=== PATIENT | male | born 1945 | race Caucasian/White ===

== ENCOUNTER 2020-05-21 14:28 | Inpatient (IN) | payer MEDICARE ==
[2020-05-21] MEDS ORDERED: MORPHINE SULFATE 4 MG INJ IV ONE ×2 (14:49→17:50)
[2020-05-21] MEDS ORDERED: Sodium Chloride 0.9% 1000 ML 1,000 ML IV STA (14:49)
[2020-05-21] MEDS ORDERED: Zofran 4 MG/2 ML VIAL IV ONE (14:49)
[2020-05-21] MEDS ORDERED: Zofran 4 MG/2 ML VIAL ONE (14:59)
[2020-05-21] MEDS ORDERED: MORPHINE SULFATE 4 MG INJ ONE ×2 (14:59→17:58)
[2020-05-21] MEDS ORDERED: Sodium Chloride 0.9% 1000 ML 0 ML ONE (14:59)
[2020-05-21 15:38] LABS: Absolute Neutrophil Ct (ANC) 10.64 (1.4-6.9); BASOPHIL % 0.2 % (0.0-0.4); Basophil (Absolute #) 0.02 (0-0.4); Eosinophil (Absolute #) 0 (0-0.5); Hemoglobin 14.5 gm/dl (12.5-18.0); Lymphocytes % 10.6 % (24.0-44.0); Mean Cell Volume 87.8 fl (78-100); Mean Corpuscular Hemoglobin 28.9 pg (26-32); Mean Platelet Volume 10.3 fl (7.5-11.0); Monocyte (Absolute #) 1.14 (0.0-1.3); Monocytes % 8.6 % (0.0-12.0); Neutrophil % 80.6 % (36.0-66.0); Platelet Count 276 K/mm3 (150-450); Red Blood Count 5.01 M/mm3 (4.1-5.6); Red Cell Distribution Width 12.7 % (11.5-14.0); White Blood Count 13.2 K/mm3 (4.0-10.5)
[2020-05-21 15:41] LABS: ALBUMIN 4.4 g/dL (3.5-5.0); ALKALINE PHOSPHATASE 61 U/L (38-126); ANION GAP 18.5 MEQ/L (5-15); BLOOD UREA NITROGEN 26 mg/dL (9-20); CHLORIDE 96 mmol/L (98-107); Calcium 9.1 mg/dL (8.4-10.2); Carbon Dioxide 24 mmol/L (22-30); Creatinine 1 1.18 mg/dL (0.66-1.25); Glucose 309 mg/dL (74-106); LIPASE 66 U/L (23-300); Potassium 4.9 mmol/L (3.5-5.1); SGOT/AST 32 U/L (17-59); SGPT/ALT 31 U/L (0-50); SODIUM 134 mmol/L (137-145); Total Protein 7.6 g/dL (6.3-8.2)
[2020-05-21 15:50] LABS: Appearance SLIGHTLY CLOUDY (CLEAR); Bilirubin NEGATIVE (NEGATIVE); Blood NEGATIVE Ery/ul (0-5); Epithelial Cells RARE /HPF (FEW); Glucose >=500 mg/dL (NEGATIVE); Ketones TRACE (NEGATIVE); Leukocyte Esterase NEGATIVE (NEGATIVE); Mucus SLIGHT /HPF (NEGATIVE); Nitrite NEGATIVE (NEGATIVE); Protein,Urine Dip 100 (Negative); RBC 0-2 /HPF (0-2); Specific Gravity 1.028 (1.005-1.025); Urobilinogen 4 mg/dL (0-1); WBC 0-2 /HPF (0-5)
--- NOTE | 2020-05-21 16:25 | ERPHSYRPT ---
- History of Present Illness Time Seen by Provider: 05/21/20 14:41 Historian: patient Exam Limitations: no limitations Patient Subjective Stated Complaint: pt reports abdominal pain beginning 05/19/20 while at his daughters, reports around 9pm that evening he began having RUQ abdominal pain that has gradually increased since then. pt reports now is adomen is swollen. Triage Nursing Assessment: pt is aox3, pupils perrl, afebrile, resps easy and non labored, cap refill < 3 seconds, radial pulses strong and equal, abd is firm, tender to the RUQ, abdomen is asymmertical, distended RUQ, bowel sounds WNL, skin is intact, no rash noted, warm dry. Physician History: 75 years old male with history of hypertension, hyperlipidemia, diabetes mellitus, open cholecystectomy in the past presented in the ER with chief complaint of right-sided abdominal pain for the last 2 days, sudden onset, moderate intensity without any significant aggravating or relieving factors, associated with mild nausea but no vomiting. Reports feeling swelling/lump on the right side. Patient reports no bowel movement or passing flatus for 2 days. Denies any fever chills or cough. Timing/Duration: day(s) (2), sudden, worse Activities at Onset: rest Quality: sharpness Abdominal Pain Onset Location: RUQ, flank Pain Radiation: no radiation Severity of Pain-Max: moderate Severity of Pain-Current: moderate Modifying Factors: Improves With: nothing Associated Symptoms: nausea Previous symptoms: no prior history Allergies/Adverse Reactions: No Known Drug Allergies Allergy (Verified 05/21/20 14:49) Home Medications: Lisinopril 40 mg PO DAILY 02/14/12 [History] Metformin HCl 1000 mg [Glucophage 1000 MG] 1,000 mg PO BID 02/14/12 [History] Verapamil HCl 80 mg [Calan 80 mg] 180 mg PO DAILY 02/14/12 [History] Simvastatin 40 mg [Zocor 40 mg] 40 mg PO DAILY 05/07/14 [History] Acetaminophen 500 mg [Tylenol Extra Strength 500 mg] 1,000 mg PO HS 05/08/14 [History] Multivitamin [Multivitamins] 1 each PO DAILY 05/08/14 [History] [place]-3 Fatty Acids/Fish Oil [Fish Oil 1,000 mg Capsule] 2,000 mg PO DAILY 05/08/14 [History] Glipizide [Glipizide ER] 10 mg PO DAILY 05/21/20 [History] Insulin Detemir [Levemir] 38 units SQ DAILY 05/21/20 [History] Hx Tetanus, Diphtheria Vaccination/Date Given: Yes Hx Influenza Vaccination/Date Given: Yes Hx Pneumococcal Vaccination/Date Given: Yes Immunizations Up to Date: Yes Travel Risk - International Travel Have you traveled outside of the country in past 3 weeks: No - Coronavirus Screening Close contact with a COVID-19 positive Pt in past 14-21 Days: No - Review of Systems Constitutional: No Symptoms Eyes: No Symptoms Ears, Nose, & Throat: No Symptoms Respiratory: No Symptoms Cardiac: No Symptoms Abdominal/Gastrointestinal: Abdominal Pain, Nausea Genitourinary Symptoms: No Symptoms Musculoskeletal: No Symptoms Skin: No Symptoms Neurological: No Symptoms Psychological: No Symptoms Endocrine: No Symptoms Hematologic/Lymphatic: No Symptoms - Past Medical History Pertinent Past Medical History: Yes Neurological History: No Pertinent History ENT History: No Pertinent History Cardiac History: Hypertension Respiratory History: No Pertinent History Endocrine Medical History: Diabetes Type II Musculoskeletal History: Arthritis GI Medical History: No Pertinent History, Polyps History: No Pertinent History Psycho-Social History: No Pertinent History Male Reproductive Disorders: Prostate Cancer Other Medical History: PROSTATE CA IN 2000, - Past Surgical History Neuro Surgical History: No Pertinent History Cardiac: No Pertinent History Respiratory: No Pertinent History Gastrointestinal: Cholecystectomy Genitourinary: No Pertinent History Musculoskeletal: No Pertinent History Male Surgical History: Prostate Surgery Other Surgical History: reopened after cholecystectomy due to lacerated liver - Social History Smoking Status: Never smoker Exposure to second hand smoke: No Drug Use: none Patient Lives Alone: No - Nursing Vital Signs Nursing Vital Signs: Initial Vital Signs Temperature 98.3 F 05/21/20 14:36 Pulse Rate 112 H 05/21/20 14:36 Respiratory Rate 20 05/21/20 14:36 Blood Pressure 183/83 05/21/20 14:36 O2 Sat by Pulse Oximetry 98 05/21/20 14:36 Pain Scale Pain Intensity 0 - Physical Exam General Appearance: no apparent distress, alert Eye Exam: PERRL/EOMI, eyes nml inspection Ears, Nose, Throat Exam: normal ENT inspection, pharynx normal Neck Exam: normal inspection, supple Respiratory Exam: normal breath sounds, lungs clear Cardiovascular Exam: normal heart sounds, tachycardia Gastrointestinal/Abdomen Exam: tenderness, guarding (Right upper quadrant/flank with some distention. Abdomen soft on the left.), other (Hypoactive bowel sounds) Back Exam: normal inspection, normal range of motion Extremity Exam: normal inspection Neurologic Exam: alert, oriented x 3, cooperative Skin Exam: normal color, warm SpO2 Interpretation: normal SpO2: 98 O2 Delivery: Room Air Ordered Tests: Active Orders 24 hr Category Date Time Status IV Insertion STAT Care 05/21/20 14:49 Active NPO (ED) STAT Care 05/21/20 14:49 Active ABDOMEN AND PELVIS W CONTRAST [CT] Stat Exams 05/21/20 16:34 Completed CBC W DIFF Stat Lab 05/21/20 15:15 Completed CMP Stat Lab 05/21/20 15:15 Completed LIPASE Stat Lab 05/21/20 15:15 Completed UA W/RFX UR CULTURE Stat Lab 05/21/20 15:28 Completed Medication Summary Generic Name Dose Route Start Last Admin Trade Name Freq PRN Reason Stop Dose Admin Lactated Ringer's 1,000 mls @ 125 mls/hr 05/21/20 18:00 Lactated Ringers IV 06/20/20 17:59 .Q8H BIANCA Discontinued Medications Generic Name Dose Route Start Last Admin Trade Name Freq PRN Reason Stop Dose Admin Sodium Chloride 1,000 mls @ 499 mls/hr 05/21/20 14:49 05/21/20 15:08 Sodium Chloride 0.9% 1000 Ml IV 05/21/20 16:49 499 mls/hr .Q2H1M STA Administration Sodium Chloride Confirm 05/21/20 14:59 Sodium Chloride 0.9% 1000 Ml Administered 05/21/20 15:00 Dose 1,000 mls @ ud .ROUTE .STK-MED ONE Insulin Human Regular 6 unit 05/21/20 17:38 Humulin R SQ 05/21/20 17:39 STAT ONE Morphine Sulfate 4 mg 05/21/20 14:49 05/21/20 15:09 Morphine Sulfate 4 Mg Inj IV 05/21/20 14:50 4 mg STAT ONE Administration Morphine Sulfate Confirm 05/21/20 14:59 Morphine Sulfate 4 Mg Inj Administered 05/21/20 15:00 Dose 4 mg .ROUTE .STK-MED ONE Ondansetron HCl 4 mg 05/21/20 14:49 05/21/20 15:08 Zofran 4 Mg/2 Ml Vial IV 05/21/20 14:50 4 mg STAT ONE Administration Ondansetron HCl Confirm 05/21/20 14:59 Zofran 4 Mg/2 Ml Vial Administered 05/21/20 15:00 Dose 4 mg .ROUTE .STK-MED ONE Lab/Rad Data: Laboratory Result Diagrams 05/21/20 15:15 05/21/20 15:15 Laboratory Results 05/21/20 05/21/20 05/21/20 Range/Units 15:28 15:15 15:15 WBC 13.2 H (4.0-10.5) K/mm3 RBC 5.01 (4.1-5.6) M/mm3 Hgb 14.5 (12.5-18.0) gm/dl Hct 44.0 (42-50) % MCV 87.8 (78-100) fl MCH 28.9 (26-32) pg MCHC 33.0 (32-36) g/dl RDW 12.7 (11.5-14.0) % Plt Count 276 (150-450) K/mm3 MPV 10.3 (7.5-11.0) fl Gran % 80.6 H (36.0-66.0) % Eos # (Auto) 0 (0-0.5) Absolute Lymphs (auto) 1.40 (1.0-4.6) Absolute Monos (auto) 1.14 (0.0-1.3) Lymphocytes % 10.6 L (24.0-44.0) % Monocytes % 8.6 (0.0-12.0) % Eosinophils % 0.0 (0.00-5.0) % Basophils % 0.2 (0.0-0.4) % Absolute Granulocytes 10.64 H (1.4-6.9) Basophils # 0.02 (0-0.4) Sodium 134 L (137-145) mmol/L Potassium 4.9 (3.5-5.1) mmol/L Chloride 96 L (98-107) mmol/L Carbon Dioxide 24 (22-30) mmol/L Anion Gap 18.5 H (5-15) MEQ/L BUN 26 H (9-20) mg/dL Creatinine 1.18 (0.66-1.25) mg/dL Estimated GFR > 60.0 ML/MIN Glucose 309 H (74-106) mg/dL Calcium 9.1 (8.4-10.2) mg/dL Total Bilirubin 1.50 H (0.2-1.3) mg/dL AST 32 (17-59) U/L ALT 31 (0-50) U/L Alkaline Phosphatase 61 (38-126) U/L Serum Total Protein 7.6 (6.3-8.2) g/dL Albumin 4.4 (3.5-5.0) g/dL Lipase 66 (23-300) U/L Urine Color YELLOW (YELLOW) Urine Appearance SLIGHTLY CLOUDY (CLEAR) Urine pH 5.0 (5-6) Ur Specific [place] 1.028 (1.005-1.025) Urine Protein 100 (Negative) Urine Ketones TRACE (NEGATIVE) Urine Blood NEGATIVE (0-5) Chaz/ul Urine Nitrite NEGATIVE (NEGATIVE) Urine Bilirubin NEGATIVE (NEGATIVE) Urine Urobilinogen 4 (0-1) mg/dL Ur Leukocyte Esterase NEGATIVE (NEGATIVE) Urine WBC (Auto) 0-2 (0-5) /HPF Urine RBC (Auto) 0-2 (0-2) /HPF U Epithel Cells (Auto) RARE (FEW) /HPF Urine Mucus (Auto) SLIGHT (NEGATIVE) /HPF Urine Culture Reflexed NO (NO) Urine Glucose >=500 (NEGATIVE) mg/dL - Progress Progress: improved, pain not gone completely, re-examined Progress Note: 75 years old is evaluated for right-sided abdominal pain with some distention. He is given IV fluid bolus and morphine for pain, on reevaluation pain is better. He has a white count of 13, chemistry profile showed mild worsening of renal function with BUN of 26 and creatinine of 1.15., CT abdomen pelvis showed distended small bowel loops suspicious for ileus versus enteritis. Patient does not have any history of vomiting or diarrhea/laxative use. I believe patient is developing partial small bowel obstruction. I have discussed with Dr. Jake Vizcarra, recommended NG tube insertion, bowel rest and KUB. D iscussed with Dr. Lr and patient is being admitted in consultation with general surgery. Plan discussed with the patient who understand and agrees with it. 05/21/20 17:43 Discussed with : Milly, Other (Jake Vizcarra) Will see patient in: hospital (observation) Counseled pt/family regarding: lab results, diagnosis, rad results - Departure Departure Disposition: Observation Clinical Impression: Ileus Condition: Stable Critical Care Time: No Referrals: ARIANNE CARBAJAL MD [Primary Care Provider] -
--- NOTE | 2020-05-21 17:00 | XRAY ---
Indication: Right abdomen swelling and pain. Multiple contiguous axial images obtained through the abdomen and pelvis using 80 cc Isovue 370 contrast only. Comparison: August 19, 2019. Lung bases demonstrates mild bibasilar subsegmental atelectasis/scarring, new on the left. No infiltrate or effusion. Heart is not enlarged. Noncontrasted stomach and bowel loops appear nonobstructed. Small bowel loops are now fluid distended throughout up to 3.5 cm with fluid leveling unchanged on delayed imaging. Findings either ileus versus enteritis. Normal appendix. Normal colonic bowel gas again with mild scattered diverticulosis. No free fluid/air. Stable fatty liver, cholecystectomy, and prostatectomy. Remaining pancreas, spleen, adrenal glands, kidneys, ureters, and bladder appear unremarkable. Stable minimal aortoiliac calcifications. No AAA or pathological retroperitoneal lymphadenopathy. Osseous structures intact again with mild/moderate degenerative changes throughout the thoracolumbar spine. No ventral or inguinal hernias. Impression: 1. New fluid distended small bowel loops with fluid leveling, ileus versus enteritis. 2. Stable fatty liver and colonic diverticulosis.
[2020-05-21] MEDS ORDERED: HUMULIN R SQ ONE (17:38)
[2020-05-21] MEDS ORDERED: HUMULIN R ONE (17:58)
[2020-05-21] MEDS ORDERED: Lactated Ringers 1,000 ML IV ONE (17:58)
[2020-05-21] MEDS ORDERED: Lactated Ringers 1,000 ML IV SCH (18:00)
[2020-05-21] MEDS ORDERED: Sodium Chloride 0.9% 1000 ML 1,000 ML ONE (19:22)
[2020-05-21] MEDS: Sodium Chloride 0.9% W/ 20 mEq KCl/LITER 1,000 ML IV SCH (19:42)
[2020-05-21] MEDS: MORPHINE SULFATE 4 MG INJ IV PRN (22:32)
[2020-05-22] MEDS: Pepcid 20 MG VIAL IV SCH ×3 (01:34→21:04)
[2020-05-22] MEDS: MORPHINE SULFATE 4 MG INJ IV PRN ×5 (03:26→20:43)
[2020-05-22] MEDS: Sodium Chloride 0.9% W/ 20 mEq KCl/LITER 1,000 ML IV SCH ×3 (04:23→20:14)
[2020-05-22 04:28] LABS: Absolute Neutrophil Ct (ANC) 12.25 (1.4-6.9); BASOPHIL % 0.1 % (0.0-0.4); Basophil (Absolute #) 0.01 (0-0.4); Eosinophil (Absolute #) 0 (0-0.5); Hemoglobin 13.5 gm/dl (12.5-18.0); Lymphocyte (Absolute #) 0.94 (1.0-4.6); Lymphocytes % 6.5 % (24.0-44.0); Mean Cell Volume 89.1 fl (78-100); Mean Corpuscular Hemoglobin 29.3 pg (26-32); Mean Corpuscular Hgb Concent. 32.9 g/dl (32-36); Mean Platelet Volume 9.8 fl (7.5-11.0); Monocyte (Absolute #) 1.17 (0.0-1.3); Monocytes % 8.1 % (0.0-12.0); Neutrophil % 85.3 % (36.0-66.0); Platelet Count 253 K/mm3 (150-450); Red Cell Distribution Width 12.7 % (11.5-14.0); White Blood Count 14.4 K/mm3 (4.0-10.5)
[2020-05-22 04:45] LABS: ALKALINE PHOSPHATASE 58 U/L (38-126); ANION GAP 14.4 MEQ/L (5-15); BLOOD UREA NITROGEN 23 mg/dL (9-20); CHLORIDE 100 mmol/L (98-107); Calcium 8.2 mg/dL (8.4-10.2); Carbon Dioxide 25 mmol/L (22-30); Creatinine 1 0.98 mg/dL (0.66-1.25); Glucose 241 mg/dL (74-106); Potassium 4.8 mmol/L (3.5-5.1); SGOT/AST 31 U/L (17-59); SGPT/ALT 30 U/L (0-50); SODIUM 134 mmol/L (137-145); Total Protein 6.9 g/dL (6.3-8.2)
[2020-05-22] MEDS: HUMALOG SQ PRN (05:09)
--- NOTE | 2020-05-22 08:33 | XRAY ---
Indication: NG tube placement. Comparison: None KUB demonstrates NG tube tip in the left upper quadrant of the abdomen presumed in the stomach. Mild air distended small bowel loops, contrasted urinary bladder, and minimal bibasilar atelectasis/scarring further detailed on same-day CT. Incidental cholecystectomy/pelvic surgical clips and mild degenerative changes.
[2020-05-22] MEDS: TRANDATE 20 MG/5 ML SYRINGE IV PRN ×3 (08:48→22:54)
--- NOTE | 2020-05-22 09:33 | XRAY ---
Indication: Ileus. Comparison: One day earlier. KUB unchanged again demonstrating mild air distended small bowel loops without focal bowel dilatation/obstruction. Stable contrast distended urinary bladder, NG tube in situ, and cholecystectomy/pelvic surgical clips. No new abnormalities.
--- NOTE | 2020-05-22 18:46 | PCM.CONS ---
History of Present Illness - Reason for Consult Chief Complaint: Ileus Requesting Provider: LETY BROOKE MD Consulting Provider: AUGUSTINE PARKINSON MD History of Present Illness: hx per chart review and d/w patient and at bedside. 8/15 pm after eating, crampy abdominal pain. constant since then. last BM thursday formed. no real flatus since 05/19. pain progressed. nauseated. NBNB emesis. presented to ED 05/21. benign exam, ct with sbo. ng placed. pain better after ng but no flatus of bowel function overnight. still distended. getting morphine. has had some nospecific crampy RUQ pain on and off for a few years. first time with obstruction /obstructino symptoms. Did have open justa ~15 years ago, postop bleeding with takeback washout. EGD 2-3 years ago c scope 5 years ago due for c scope this year. hx polyps. " Historian: patient Exam Limitations: no limitations Patient Subjective Stated Complaint: pt reports abdominal pain beginning 05/19/20 while at his daughters, reports around 9pm that evening he began having RUQ abdominal pain that has gradually increased since then. pt reports now is adomen is swollen. Triage Nursing Assessment: pt is aox3, pupils perrl, afebrile, resps easy and non labored, cap refill < 3 seconds, radial pulses strong and equal, abd is firm, tender to the RUQ, abdomen is asymmertical, distended RUQ, bowel sounds WNL, skin is intact, no rash noted, warm dry. Physician History: 75 years old male with history of hypertension, hyperlipidemia, diabetes mellitus, open cholecystectomy in the past presented in the ER with chief complaint of right-sided abdominal pain for the last 2 days, sudden onset, moderate intensity without any significant aggravating or relieving factors, associated with mild nausea but no vomiting. Reports feeling swelling/lump on the right side. Patient reports no bowel movement or passing flatus for 2 days. Denies any fever chills or cough. Timing/Duration: day(s) (2), sudden, worse Activities at Onset: rest Quality: sharpness Abdominal Pain Onset Location: RUQ, flank Pain Radiation: no radiation Severity of Pain-Max: moderate Severity of Pain-Current: moderate Modifying Factors: Improves With: nothing Associated Symptoms: nausea Previous symptoms: no prior history Allergies/Adverse Reactions: No Known Drug Allergies Allergy (Verified 05/21/20 14:49) Home Medications: Lisinopril 40 mg PO DAILY 02/14/12 [History] Metformin HCl 1000 mg [Glucophage 1000 MG] 1,000 mg PO BID 02/14/12 [History] Verapamil HCl 80 mg [Calan 80 mg] 180 mg PO DAILY 02/14/12 [History] Simvastatin 40 mg [Zocor 40 mg] 40 mg PO DAILY 05/07/14 [History] Acetaminophen 500 mg [Tylenol Extra Strength 500 mg] 1,000 mg PO HS 05/08/14 [History] Multivitamin [Multivitamins] 1 each PO DAILY 05/08/14 [History] [place]-3 Fatty Acids/Fish Oil [Fish Oil 1,000 mg Capsule] 2,000 mg PO DAILY 05/08/14 [History] Glipizide [Glipizide ER] 10 mg PO DAILY 05/21/20 [History] Insulin Detemir [Levemir] 38 units SQ DAILY 05/21/20 [History] Hx Tetanus, Diphtheria Vaccination/Date Given: Yes Hx Influenza Vaccination/Date Given: Yes Hx Pneumococcal Vaccination/Date Given: Yes Immunizations Up to Date: Yes Travel Risk - International Travel Have you traveled outside of the country in past 3 weeks: No - Coronavirus Screening Close contact with a COVID-19 positive Pt in past 14-21 Days: No - Review of Systems Constitutional: No Symptoms Eyes: No Symptoms Ears, Nose, & Throat: No Symptoms Respiratory: No Symptoms Cardiac: No Symptoms Abdominal/Gastrointestinal: Abdominal Pain, Nausea Genitourinary Symptoms: No Symptoms Musculoskeletal: No Symptoms Skin: No Symptoms Neurological: No Symptoms Psychological: No Symptoms Endocrine: No Symptoms Hematologic/Lymphatic: No Symptoms - Past Medical History Pertinent Past Medical History: Yes Neurological History: No Pertinent History ENT History: No Pertinent History Cardiac History: Hypertension Respiratory History: No Pertinent History Endocrine Medical History: Diabetes Type II Musculoskeletal History: Arthritis GI Medical History: No Pertinent History, Polyps History: No Pertinent History Psycho-Social History: No Pertinent History Male Reproductive Disorders: Prostate Cancer Other Medical History: PROSTATE CA IN 2000, - Past Surgical History Neuro Surgical History: No Pertinent History Cardiac: No Pertinent History Respiratory: No Pertinent History Gastrointestinal: Cholecystectomy Genitourinary: No Pertinent History Musculoskeletal: No Pertinent History Male Surgical History: Prostate Surgery Other Surgical History: reopened after cholecystectomy due to lacerated liver - Social History Smoking Status: Never smoker Exposure to second hand smoke: No Drug Use: none Patient Lives Alone: No " - Review of Systems Constitutional: No Fever, No Chills Respiratory: No Cough, No Short Of Breath Cardiac: No Chest Pain Genitourinary Symptoms: No Dysuria, No Frequency Musculoskeletal: No Arthralgias Skin: No Symptoms Neurological: No Symptoms Psychological: No Symptoms Endocrine: No Symptoms Hematologic/Lymphatic: No Easy Bleeding Medications & Allergies Home Medications: Home Medication List Lisinopril 40 mg PO DAILY 02/14/12 [History Confirmed 05/21/20] Metformin HCl 1000 mg [Glucophage 1000 MG] 1,000 mg PO BID 02/14/12 [History Confirmed 05/21/20] Verapamil HCl 80 mg [Calan 80 mg] 180 mg PO DAILY 02/14/12 [History Confirmed 05/21/20] Simvastatin 40 mg [Zocor 40 mg] 40 mg PO DAILY 05/07/14 [History Confirmed 05/21/20] Acetaminophen 500 mg [Tylenol Extra Strength 500 mg] 1,000 mg PO HS 05/08/14 [History Confirmed 05/21/20] Multivitamin [Multivitamins] 1 each PO DAILY 05/08/14 [History Confirmed 05/21/20] [place]-3 Fatty Acids/Fish Oil [Fish Oil 1,000 mg Capsule] 2,000 mg PO DAILY 05/08/14 [History Confirmed 05/21/20] Glipizide [Glipizide ER] 10 mg PO DAILY 05/21/20 [History Confirmed 05/21/20] Insulin Detemir [Levemir] 38 units SQ DAILY 05/21/20 [History Confirmed 05/21/20] Allergies/Adverse Reactions: Allergies Allergy/AdvReac Type Severity Reaction Status Date / Time No Known Drug Allergies Allergy Verified 05/21/20 14:49 - Past Medical History Past Medical History: Yes Neurological History: No Pertinent History ENT History: No Pertinent History Cardiac History: Hypertension Respiratory History: No Pertinent History Endocrine Medical History: Diabetes Type II Musculoskelatal History: Arthritis GI Medical History: No Pertinent History, Polyps History: No Pertinent History Pyscho-Social History: No Pertinent History Male Reproductive Disorders: Prostate Cancer Comment: PROSTATE CA IN 2000 - Past Surgical History Past Surgical History: Yes Neuro Surgical History: No Pertinent History Cardiac History: No Pertinent History Respiratory Surgery: No Pertinent History GI Surgical History: Cholecystectomy Genitourinary Surgical Hx: No Pertinent History Musculskeletal Surgical Hx: No Pertinent History Male Surgical History: Prostate Surgery Other Surgical History: reopened after cholecystectomy due to lacerated liver - Social History Smoking Status: Former smoker Exposure to second hand smoke: No Alcohol: None Drug Use: none - Physical Exam Vital Signs: Vital Signs - 24 hr Temp Pulse Resp BP Pulse Ox 05/22/20 16:00 98.6 F 97 H 18 181/83 94 L 05/22/20 13:28 80 18 147/71 05/22/20 12:00 97.7 F 89 18 184/83 94 L 05/22/20 08:00 98.6 F 87 20 178/80 93 L 05/21/20 18:55 98.3 F 92 H 18 135/73 96 General Appearance: no apparent distress Neurologic Exam: alert, oriented x 3 Eye Exam: eyes nml inspection, No scleral icterus Neck Exam: normal inspection Respiratory Exam: No respiratory distress Cardiovascular Exam: regular rate/rhythm, capillary refill <2 sec Gastrointestinal/Abdomen Exam: soft, tenderness, distention, No guarding, No rebound Rectal Exam: deferred Extremity Exam: normal inspection, No pedal edema Skin Exam: normal color, warm, dry Results - Labs Lab/Micro Results: Accuchecks Date 05/22/20 Date 05/22/20 Date 05/22/20 Time 16:34 Time 13:01 Time 07:52 Accucheck Value: 236 Accucheck Value: 220 Accucheck Value: 208 Accucheck Value: 249 Accucheck Value: 188 Lab Results-Last 24 Hours 05/22/20 05/22/20 Range/Units 04:25 04:25 WBC 14.4 H (4.0-10.5) K/mm3 RBC 4.60 (4.1-5.6) M/mm3 Hgb 13.5 (12.5-18.0) gm/dl Hct 41.0 L (42-50) % MCV 89.1 (78-100) fl MCH 29.3 (26-32) pg MCHC 32.9 (32-36) g/dl RDW 12.7 (11.5-14.0) % Plt Count 253 (150-450) K/mm3 MPV 9.8 (7.5-11.0) fl Gran % 85.3 H (36.0-66.0) % Eos # (Auto) 0 (0-0.5) Absolute Lymphs (auto) 0.94 L (1.0-4.6) Absolute Monos (auto) 1.17 (0.0-1.3) Lymphocytes % 6.5 L (24.0-44.0) % Monocytes % 8.1 (0.0-12.0) % Eosinophils % 0.0 (0.00-5.0) % Basophils % 0.1 (0.0-0.4) % Absolute Granulocytes 12.25 H (1.4-6.9) Basophils # 0.01 (0-0.4) Sodium 134 L (137-145) mmol/L Potassium 4.8 (3.5-5.1) mmol/L Chloride 100 (98-107) mmol/L Carbon Dioxide 25 (22-30) mmol/L Anion Gap 14.4 (5-15) MEQ/L BUN 23 H (9-20) mg/dL Creatinine 0.98 (0.66-1.25) mg/dL Estimated GFR > 60.0 ML/MIN Glucose 241 H (74-106) mg/dL Calcium 8.2 L (8.4-10.2) mg/dL Total Bilirubin 1.50 H (0.2-1.3) mg/dL AST 31 (17-59) U/L ALT 30 (0-50) U/L Alkaline Phosphatase 58 (38-126) U/L Serum Total Protein 6.9 (6.3-8.2) g/dL Albumin 4.0 (3.5-5.0) g/dL Accuchecks Date 05/22/20 Date 05/22/20 Date 05/22/20 Time 16:34 Time 13:01 Time 07:52 Accucheck Value: 236 Accucheck Value: 220 Accucheck Value: 208 Accucheck Value: 249 Accucheck Value: 188 - Radiology Impressions Radiology Exams & Impressions: Radiology Procedures Category Date Time Status ABDOMEN AND PELVIS W CONTRAST [CT] Stat Exams 05/21/20 16:34 Completed KUB Routine Exams 05/22/20 09:06 Completed KUB Stat Exams 05/21/20 18:25 Completed Assessment/Plan (1) Ileus Current Visit: Yes Status: Acute Assessment & Plan: 75yo male with SBO. obstructive symptoms. pain somewhat improved with NG but no bowel function yet. normal vitals benign exam. mild leukocytosis. ct with clear transition point. KUB ok with ng location. -cont supportive care. -will see how he does tonight. if no improvement would recommend surgery given transition on CT. will reserve afternoon OR time for 05/23 Code(s): K56.7 - ILEUS, UNSPECIFIED
--- NOTE | 2020-05-22 18:51 | PCM.HP ---
History of Present Illness - Chief Complaint Chief Complaint: Ileus History of Present Illness: is a 75 year old male seen and examined today following ER admission for suspected ileus. Patient reports that on thursday he was at his daughter's eating and starting feeling unwell. He reports that he had abdominal pain was bloated and distended. The following day he reports that he drank his usual cup of coffee in the am and did not have a BM which is unusual for him. Patient reports that - Review of Systems Constitutional: No Fever, No Weight Loss Eyes: No Symptoms Ears, Nose, & Throat: No Symptoms Respiratory: No Symptoms Cardiac: No Symptoms Abdominal/Gastrointestinal: Abdominal Pain, Appetite Changes, Other (No BMs since Sat), No Nausea, No Vomiting, No Diarrhea, No Constipation Genitourinary Symptoms: No Symptoms Musculoskeletal: No Symptoms Skin: No Symptoms Neurological: No Symptoms Psychological: No Symptoms Medications & Allergies Home Medications: Home Medication List Lisinopril 40 mg PO DAILY 02/14/12 [History Confirmed 05/21/20] Metformin HCl 1000 mg [Glucophage 1000 MG] 1,000 mg PO BID 02/14/12 [History Confirmed 05/21/20] Verapamil HCl 80 mg [Calan 80 mg] 180 mg PO DAILY 02/14/12 [History Confirmed 05/21/20] Simvastatin 40 mg [Zocor 40 mg] 40 mg PO DAILY 05/07/14 [History Confirmed 05/21/20] Acetaminophen 500 mg [Tylenol Extra Strength 500 mg] 1,000 mg PO HS 05/08/14 [History Confirmed 05/21/20] Multivitamin [Multivitamins] 1 each PO DAILY 05/08/14 [History Confirmed 05/21/20] [place]-3 Fatty Acids/Fish Oil [Fish Oil 1,000 mg Capsule] 2,000 mg PO DAILY 05/08/14 [History Confirmed 05/21/20] Glipizide [Glipizide ER] 10 mg PO DAILY 05/21/20 [History Confirmed 05/21/20] Insulin Detemir [Levemir] 38 units SQ DAILY 05/21/20 [History Confirmed 05/21/20] Allergies/Adverse Reactions: Allergies Allergy/AdvReac Type Severity Reaction Status Date / Time No Known Drug Allergies Allergy Verified 05/21/20 14:49 - Past Medical History Past Medical History: Yes Neurological History: No Pertinent History ENT History: No Pertinent History Cardiac History: Hypertension Respiratory History: No Pertinent History Endocrine Medical History: Diabetes Type II Musculoskelatal History: Arthritis GI Medical History: No Pertinent History, Polyps History: No Pertinent History Pyscho-Social History: No Pertinent History Male Reproductive Disorders: Prostate Cancer Comment: PROSTATE CA IN 2000 - Past Surgical History Past Surgical History: Yes Neuro Surgical History: No Pertinent History Cardiac History: No Pertinent History Respiratory Surgery: No Pertinent History GI Surgical History: Cholecystectomy Genitourinary Surgical Hx: No Pertinent History Musculskeletal Surgical Hx: No Pertinent History Male Surgical History: Prostate Surgery Other Surgical History: reopened after cholecystectomy due to lacerated liver - Social History Smoking Status: Former smoker Exposure to second hand smoke: No Alcohol: None Drug Use: none - Physical Exam Vital Signs: Vital Signs - 24 hr Temp Pulse Resp BP Pulse Ox 05/22/20 16:00 98.6 F 97 H 18 181/83 94 L 05/22/20 13:28 80 18 147/71 05/22/20 12:00 97.7 F 89 18 184/83 94 L 05/22/20 08:00 98.6 F 87 20 178/80 93 L 05/21/20 18:55 98.3 F 92 H 18 135/73 96 General Appearance: moderate distress Neurologic Exam: alert, oriented x 3, cooperative, depressed mood/affect Eye Exam: No scleral icterus Ears, Nose, Throat Exam: dry mucous membranes Neck Exam: normal inspection Respiratory Exam: normal breath sounds, lungs clear, No respiratory distress, No diminished breath sounds, No crackles/rales, No wheezing Cardiovascular Exam: regular rate/rhythm, No murmur, No friction rub, No gallop, No edema Gastrointestinal/Abdomen Exam: tenderness, distention (Patient has distension that is in band like pattern in upper abdominal region. Lower abdomen without distension.), No soft, No normal bowel sounds (Patient has hypoactive BS) Extremity Exam: No pedal edema, No swelling Skin Exam: warm, dry, pale, No rash Results - Labs Lab/Micro Results: Accuchecks Date 05/22/20 Date 05/22/20 Date 05/22/20 Time 16:34 Time 13:01 Time 07:52 Accucheck Value: 236 Accucheck Value: 220 Accucheck Value: 208 Accucheck Value: 249 Accucheck Value: 188 Lab Results-Last 24 Hours 05/22/20 05/22/20 Range/Units 04:25 04:25 WBC 14.4 H (4.0-10.5) K/mm3 RBC 4.60 (4.1-5.6) M/mm3 Hgb 13.5 (12.5-18.0) gm/dl Hct 41.0 L (42-50) % MCV 89.1 (78-100) fl MCH 29.3 (26-32) pg MCHC 32.9 (32-36) g/dl RDW 12.7 (11.5-14.0) % Plt Count 253 (150-450) K/mm3 MPV 9.8 (7.5-11.0) fl Gran % 85.3 H (36.0-66.0) % Eos # (Auto) 0 (0-0.5) Absolute Lymphs (auto) 0.94 L (1.0-4.6) Absolute Monos (auto) 1.17 (0.0-1.3) Lymphocytes % 6.5 L (24.0-44.0) % Monocytes % 8.1 (0.0-12.0) % Eosinophils % 0.0 (0.00-5.0) % Basophils % 0.1 (0.0-0.4) % Absolute Granulocytes 12.25 H (1.4-6.9) Basophils # 0.01 (0-0.4) Sodium 134 L (137-145) mmol/L Potassium 4.8 (3.5-5.1) mmol/L Chloride 100 (98-107) mmol/L Carbon Dioxide 25 (22-30) mmol/L Anion Gap 14.4 (5-15) MEQ/L BUN 23 H (9-20) mg/dL Creatinine 0.98 (0.66-1.25) mg/dL Estimated GFR > 60.0 ML/MIN Glucose 241 H (74-106) mg/dL Calcium 8.2 L (8.4-10.2) mg/dL Total Bilirubin 1.50 H (0.2-1.3) mg/dL AST 31 (17-59) U/L ALT 30 (0-50) U/L Alkaline Phosphatase 58 (38-126) U/L Serum Total Protein 6.9 (6.3-8.2) g/dL Albumin 4.0 (3.5-5.0) g/dL Accuchecks Date 05/22/20 Date 05/22/20 Date 05/22/20 Time 16:34 Time 13:01 Time 07:52 Accucheck Value: 236 Accucheck Value: 220 Accucheck Value: 208 Accucheck Value: 249 Accucheck Value: 188 - Radiology Impressions Radiology Exams & Impressions: Radiology Procedures Category Date Time Status ABDOMEN AND PELVIS W CONTRAST [CT] Stat Exams 05/21/20 16:34 Completed KUB Routine Exams 05/22/20 09:06 Completed KUB Stat Exams 05/21/20 18:25 Completed Assessment/Plan (1) Diabetes Current Visit: Yes Status: Acute Code(s): E11.9 - TYPE 2 DIABETES MELLITUS WITHOUT COMPLICATIONS (2) Essential hypertension Current Visit: Yes Status: Acute Code(s): I10 - ESSENTIAL (PRIMARY) HYPERTENSION
[2020-05-23] MEDS: MORPHINE SULFATE 4 MG INJ IV PRN ×2 (01:52→20:25)
[2020-05-23] MEDS: Zofran 4 MG/2 ML VIAL IV PRN (03:31)
[2020-05-23] MEDS: Sodium Chloride 0.9% W/ 20 mEq KCl/LITER 1,000 ML IV SCH (04:08)
[2020-05-23 05:29] LABS: Hematocrit 39.8 % (42-50); Hemoglobin 12.8 gm/dl (12.5-18.0); Mean Cell Volume 91.3 fl (78-100); Mean Corpuscular Hemoglobin 29.4 pg (26-32); Mean Corpuscular Hgb Concent. 32.2 g/dl (32-36); Mean Platelet Volume 10.4 fl (7.5-11.0); Platelet Count 243 K/mm3 (150-450); Red Blood Count 4.36 M/mm3 (4.1-5.6); Red Cell Distribution Width 12.6 % (11.5-14.0)
[2020-05-23 05:44] LABS: ALBUMIN 3.7 g/dL (3.5-5.0); ALKALINE PHOSPHATASE 58 U/L (38-126); ANION GAP 14.4 MEQ/L (5-15); BLOOD UREA NITROGEN 21 mg/dL (9-20); CHLORIDE 102 mmol/L (98-107); Calcium 7.8 mg/dL (8.4-10.2); Carbon Dioxide 24 mmol/L (22-30); Glucose 266 mg/dL (74-106); Potassium 4.9 mmol/L (3.5-5.1); SGOT/AST 25 U/L (17-59); SGPT/ALT 25 U/L (0-50); SODIUM 135 mmol/L (137-145); Total Protein 6.5 g/dL (6.3-8.2)
[2020-05-23] MEDS: TRANDATE 20 MG/5 ML SYRINGE IV PRN ×3 (06:06→13:35)
[2020-05-23] MEDS ORDERED: Sensorcaine 0.25% 10 ML ONE (09:48)
[2020-05-23 09:56] LABS: BASOPHIL % 0.1 % (0.0-0.4); Basophil (Absolute #) 0.01 (0-0.4); Eosinophil % 0.1 % (0.00-5.0); Eosinophil (Absolute #) 0.01 (0-0.5); Hematocrit 40.1 % (42-50); Lymphocyte (Absolute #) 0.77 (1.0-4.6); Lymphocytes % 9.4 % (24.0-44.0); Mean Cell Volume 90.5 fl (78-100); Mean Corpuscular Hemoglobin 29.3 pg (26-32); Mean Corpuscular Hgb Concent. 32.4 g/dl (32-36); Mean Platelet Volume 9.9 fl (7.5-11.0); Monocyte (Absolute #) 1.09 (0.0-1.3); Monocytes % 13.3 % (0.0-12.0); Neutrophil % 77.1 % (36.0-66.0); Platelet Count 223 K/mm3 (150-450); Red Blood Count 4.43 M/mm3 (4.1-5.6); Red Cell Distribution Width 12.5 % (11.5-14.0); White Blood Count 8.2 K/mm3 (4.0-10.5)
[2020-05-23] MEDS ORDERED: HOLD METFORMIN PRODUCTS FOR 48 HOURS MC SCH (10:00)
[2020-05-23 10:07] LABS: ALBUMIN 3.7 g/dL (3.5-5.0); ALKALINE PHOSPHATASE 56 U/L (38-126); BLOOD UREA NITROGEN 21 mg/dL (9-20); CHLORIDE 103 mmol/L (98-107); Calcium 7.9 mg/dL (8.4-10.2); Carbon Dioxide 23 mmol/L (22-30); Creatinine 1 0.91 mg/dL (0.66-1.25); Glucose 288 mg/dL (74-106); Potassium 5.2 mmol/L (3.5-5.1); SGOT/AST 25 U/L (17-59); SGPT/ALT 24 U/L (0-50); SODIUM 136 mmol/L (137-145); Total Protein 6.6 g/dL (6.3-8.2)
[2020-05-23] MEDS: Pepcid 20 MG VIAL IV SCH ×2 (10:46→21:51)
[2020-05-23 11:01] LABS: ABO TYPING A; Antibody Screen NEGATIVE (NEGATIVE); RH TYPING POSITIVE
[2020-05-23] MEDS: HUMALOG SQ PRN ×2 (13:41→21:51)
--- NOTE | 2020-05-23 15:29 | PCM.NOTE ---
Date and Time: 05/23/20 1527 Subjective Assessment: 75 yr old male seen and examined this am. Patient reports he feels the pain is slightly better. He wanted to have a cracker but still reports decreased appetite. OBJECTIVE DATA Vital Signs: Vital Signs - 24 hr Temp Pulse Resp BP Pulse Ox 05/23/20 12:00 98.0 F 87 16 183/83 96 05/23/20 08:00 97.8 F 82 18 188/79 94 L 05/23/20 04:00 99 F 87 18 194/85 94 L 05/22/20 22:55 90 179/97 05/22/20 20:00 99.1 F 84 15 189/92 94 L 05/22/20 16:00 98.6 F 97 H 18 181/83 94 L Pain Assessment - Last Documented Pain Intensity 3 Pain Scale Used 0-10 Pain Scale Intake and Output: Intake & Output 05/21/20 05/22/20 05/23/20 05/24/20 11:59 11:59 11:59 11:59 Intake Total 1250 2970 Output Total 1750 1850 Balance -500 1120 Weight 90.8 kg 91.1 kg Lab Results: Accuchecks Date 05/23/20 Date 05/22/20 Date 05/22/20 Time 00:00 Time 20:00 Time 16:34 Accucheck Value: 280 Accucheck Value: 250 Accucheck Value: 236 Lab Results-Last 24 Hours 05/23/20 05/23/20 05/23/20 Range/Units 04:30 04:30 08:50 WBC 9.0 (4.0-10.5) K/mm3 RBC 4.36 (4.1-5.6) M/mm3 Hgb 12.8 (12.5-18.0) gm/dl Hct 39.8 L (42-50) % MCV 91.3 (78-100) fl MCH 29.4 (26-32) pg MCHC 32.2 (32-36) g/dl RDW 12.6 (11.5-14.0) % Plt Count 243 (150-450) K/mm3 MPV 10.4 (7.5-11.0) fl Gran % (36.0-66.0) % Eos # (Auto) (0-0.5) Absolute Lymphs (auto) (1.0-4.6) Absolute Monos (auto) (0.0-1.3) Lymphocytes % (24.0-44.0) % Monocytes % (0.0-12.0) % Eosinophils % (0.00-5.0) % Basophils % (0.0-0.4) % Absolute Granulocytes (1.4-6.9) Basophils # (0-0.4) Sodium 135 L (137-145) mmol/L Potassium 4.9 (3.5-5.1) mmol/L Chloride 102 (98-107) mmol/L Carbon Dioxide 24 (22-30) mmol/L Anion Gap 14.4 (5-15) MEQ/L BUN 21 H (9-20) mg/dL Creatinine 0.90 (0.66-1.25) mg/dL Estimated GFR > 60.0 ML/MIN Glucose 266 H (74-106) mg/dL Calcium 7.8 L (8.4-10.2) mg/dL Total Bilirubin 1.60 H (0.2-1.3) mg/dL AST 25 (17-59) U/L ALT 25 (0-50) U/L Alkaline Phosphatase 58 (38-126) U/L Serum Total Protein 6.5 (6.3-8.2) g/dL Albumin 3.7 (3.5-5.0) g/dL ABO Group A Rh Factor POSITIVE Antibody Screen NEGATIVE (NEGATIVE) 05/23/20 05/23/20 Range/Units 09:05 09:05 WBC 8.2 (4.0-10.5) K/mm3 RBC 4.43 (4.1-5.6) M/mm3 Hgb 13.0 (12.5-18.0) gm/dl Hct 40.1 L (42-50) % MCV 90.5 (78-100) fl MCH 29.3 (26-32) pg MCHC 32.4 (32-36) g/dl RDW 12.5 (11.5-14.0) % Plt Count 223 (150-450) K/mm3 MPV 9.9 (7.5-11.0) fl Gran % 77.1 H (36.0-66.0) % Eos # (Auto) 0.01 (0-0.5) Absolute Lymphs (auto) 0.77 L (1.0-4.6) Absolute Monos (auto) 1.09 (0.0-1.3) Lymphocytes % 9.4 L (24.0-44.0) % Monocytes % 13.3 H (0.0-12.0) % Eosinophils % 0.1 (0.00-5.0) % Basophils % 0.1 (0.0-0.4) % Absolute Granulocytes 6.30 (1.4-6.9) Basophils # 0.01 (0-0.4) Sodium 136 L (137-145) mmol/L Potassium 5.2 H (3.5-5.1) mmol/L Chloride 103 (98-107) mmol/L Carbon Dioxide 23 (22-30) mmol/L Anion Gap 16.0 H (5-15) MEQ/L BUN 21 H (9-20) mg/dL Creatinine 0.91 (0.66-1.25) mg/dL Estimated GFR > 60.0 ML/MIN Glucose 288 H (74-106) mg/dL Calcium 7.9 L (8.4-10.2) mg/dL Total Bilirubin 1.80 H (0.2-1.3) mg/dL AST 25 (17-59) U/L ALT 24 (0-50) U/L Alkaline Phosphatase 56 (38-126) U/L Serum Total Protein 6.6 (6.3-8.2) g/dL Albumin 3.7 (3.5-5.0) g/dL ABO Group Rh Factor Antibody Screen (NEGATIVE) Radiology Exams: Radiology Procedures Category Date Time Status ABDOMEN AND PELVIS W CONTRAST [CT] Stat Exams 05/21/20 16:34 Completed KUB Routine Exams 05/22/20 09:06 Completed KUB Stat Exams 05/21/20 18:25 Completed SMALL BOWEL FOLLOWING UGI Routine Exams 05/24/20 09:00 Ordered Multi-Disciplinary Progress Notes: Multi-Disciplinary Progress Notes 05/23/20 09:55 Case Management Note by Winifred Sewell PATIENT STILL ACUTELY ILL, WILL CONTINUE TO FOLLOW FOR ANY DEVELOPING NEEDS AT TIME OF DC Initialized on 05/23/20 09:55 - END OF NOTE Assessment/Plan (1) Diabetes Current Visit: Yes Status: Acute Code(s): E11.9 - TYPE 2 DIABETES MELLITUS WITHOUT COMPLICATIONS (2) Essential hypertension Current Visit: Yes Status: Acute Code(s): I10 - ESSENTIAL (PRIMARY) HYPERTENSION
[2020-05-23] MEDS: TRANDATE 100 MG/20 ML MDV FOR DRIP IV PRN ×2 (16:56→20:43)
[2020-05-23] MEDS: Sodium Chloride 0.9% 1000 ML 1,000 ML IV SCH (16:56)
[2020-05-24] MEDS: HUMALOG SQ PRN ×3 (00:06→22:38)
[2020-05-24] MEDS: Sodium Chloride 0.9% 1000 ML 1,000 ML IV SCH ×3 (02:57→22:02)
[2020-05-24] MEDS: MORPHINE SULFATE 4 MG INJ IV PRN ×2 (04:47→11:49)
[2020-05-24] MEDS: TRANDATE 100 MG/20 ML MDV FOR DRIP IV PRN ×3 (05:01→13:35)
[2020-05-24 05:14] LABS: Absolute Neutrophil Ct (ANC) 7.13 (1.4-6.9); BASOPHIL % 0.1 % (0.0-0.4); Basophil (Absolute #) 0.01 (0-0.4); Eosinophil % 0.1 % (0.00-5.0); Eosinophil (Absolute #) 0.01 (0-0.5); Hematocrit 37.1 % (42-50); Hemoglobin 12.1 gm/dl (12.5-18.0); Lymphocyte (Absolute #) 1.02 (1.0-4.6); Mean Cell Volume 90.3 fl (78-100); Mean Corpuscular Hemoglobin 29.4 pg (26-32); Mean Corpuscular Hgb Concent. 32.6 g/dl (32-36); Mean Platelet Volume 10.2 fl (7.5-11.0); Monocyte (Absolute #) 1.13 (0.0-1.3); Monocytes % 12.2 % (0.0-12.0); Neutrophil % 76.6 % (36.0-66.0); Platelet Count 229 K/mm3 (150-450); Red Blood Count 4.11 M/mm3 (4.1-5.6); Red Cell Distribution Width 12.5 % (11.5-14.0); White Blood Count 9.3 K/mm3 (4.0-10.5)
[2020-05-24 05:32] LABS: ALBUMIN 3.3 g/dL (3.5-5.0); ALKALINE PHOSPHATASE 56 U/L (38-126); ANION GAP 11.4 MEQ/L (5-15); BLOOD UREA NITROGEN 22 mg/dL (9-20); CHLORIDE 104 mmol/L (98-107); Calcium 7.8 mg/dL (8.4-10.2); Carbon Dioxide 24 mmol/L (22-30); Creatinine 1 0.83 mg/dL (0.66-1.25); Direct Bilirubin 0.4 mg/dL (0.0-0.4); Glucose 195 mg/dL (74-106); Potassium 4.1 mmol/L (3.5-5.1); SGOT/AST 25 U/L (17-59); SGPT/ALT 23 U/L (0-50); SODIUM 136 mmol/L (137-145); Total Protein 6.3 g/dL (6.3-8.2)
[2020-05-24] MEDS: Zofran 4 MG/2 ML VIAL IV PRN (08:18)
--- NOTE | 2020-05-24 13:02 | XRAY ---
Indication: Abdomen pain. Ileus. No bowel movements 5 days. 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 NG tube tip projects left upper quadrant abdomen presumed in the stomach and there are cholecystectomy/pelvic surgical clips. 500 cc diluted Gastrografin injected through indwelling NG tube. Multiple overhead and digital spot radiographs obtained. Gastrografin contrast collects within the stomach with immediate gastric emptying. Stomach is normally contrast distended with immediate gastric emptying. Gastric rugal folds unremarkable with no filling defect. No gastroesophageal reflux demonstrated. Duodenum is normal in course and caliber without focal abnormality. Impression: Negative limited single contrast upper GI exam. Approximately 0.5 minute fluoroscopy used.
--- NOTE | 2020-05-24 13:07 | XRAY ---
Indication: Abdomen pain. Ileus. No bowel movements 5 days. 500 cc diluted Gastrografin injected through indwelling NG tube. Multiple overhead and digital spot radiographs obtained. Gastrografin contrast collects within the stomach with immediate gastric emptying. Contrast moves antegrade to the level of the proximal transverse colon within 60 minutes. Small bowel loops appear normal in course and caliber. Spot compression views are negative for focal stricture, obstruction, or inflammatory changes. Normal appearing ileocecal junction. The processing technologist reports patient had a bowel movement during exam. Impression: Negative small bowel follow-through exam. Approximately 0.6 minute fluoroscopy used.
[2020-05-24] MEDS: Pepcid 20 MG VIAL IV SCH ×2 (13:18→21:26)
--- NOTE | 2020-05-24 21:03 | PCM.NOTE ---
Date and Time: 05/24/202058 Subjective Assessment: 75 yr old male seen and examined this am. He reports that he feels slightly better. Patient reports that he has been passing gas but still has not had a BM. Patient reports that he still wants to have surgery cause he does not think it is going to improve on its own. He reports he is nauseated this morning. He had no other reported complaints OBJECTIVE DATA Vital Signs: Vital Signs - 24 hr Temp Pulse Resp BP Pulse Ox 05/24/20 16:00 97.5 F 83 14 162/72 93 L 05/24/20 12:00 76 176/75 05/24/20 07:47 98.5 F 80 20 186/80 94 L 05/24/20 03:52 98.6 F 80 20 185/84 94 L 05/23/20 23:47 98.5 F 76 18 159/68 96 Pain Assessment - Last Documented Pain Intensity 6 Pain Scale Used 0-10 Pain Scale Intake and Output: Intake & Output 05/22/20 05/23/20 05/24/20 05/25/20 11:59 11:59 11:59 11:59 Intake Total 1250 2970 77130 2118 Output Total 1750 1850 200 300 Balance -500 1120 11753 1818 Weight 90.8 kg 91.1 kg 90.2 kg Lab Results: Accuchecks Date 05/24/20 Time 07:30 Accucheck Value: 216 Accucheck Value: 211 Accucheck Value: 190 Accucheck Value: 226 Lab Results-Last 24 Hours 05/24/20 05/24/20 Range/Units 04:28 04:28 WBC 9.3 (4.0-10.5) K/mm3 RBC 4.11 (4.1-5.6) M/mm3 Hgb 12.1 L (12.5-18.0) gm/dl Hct 37.1 L (42-50) % MCV 90.3 (78-100) fl MCH 29.4 (26-32) pg MCHC 32.6 (32-36) g/dl RDW 12.5 (11.5-14.0) % Plt Count 229 (150-450) K/mm3 MPV 10.2 (7.5-11.0) fl Gran % 76.6 H (36.0-66.0) % Eos # (Auto) 0.01 (0-0.5) Absolute Lymphs (auto) 1.02 (1.0-4.6) Absolute Monos (auto) 1.13 (0.0-1.3) Lymphocytes % 11.0 L (24.0-44.0) % Monocytes % 12.2 H (0.0-12.0) % Eosinophils % 0.1 (0.00-5.0) % Basophils % 0.1 (0.0-0.4) % Absolute Granulocytes 7.13 H (1.4-6.9) Basophils # 0.01 (0-0.4) Sodium 136 L (137-145) mmol/L Potassium 4.1 D (3.5-5.1) mmol/L Chloride 104 (98-107) mmol/L Carbon Dioxide 24 (22-30) mmol/L Anion Gap 11.4 (5-15) MEQ/L BUN 22 H (9-20) mg/dL Creatinine 0.83 (0.66-1.25) mg/dL Estimated GFR > 60.0 ML/MIN Glucose 195 H (74-106) mg/dL Calcium 7.8 L (8.4-10.2) mg/dL Total Bilirubin 1.20 (0.2-1.3) mg/dL Direct Bilirubin 0.4 (0.0-0.4) mg/dL AST 25 (17-59) U/L ALT 23 (0-50) U/L Alkaline Phosphatase 56 (38-126) U/L Serum Total Protein 6.3 (6.3-8.2) g/dL Albumin 3.3 L (3.5-5.0) g/dL Radiology Exams: Radiology Procedures Category Date Time Status SMALL BOWEL FOLLOWING UGI Routine Exams 05/24/20 09:00 Completed UGI w/o AIR Routine Exams 05/24/20 12:23 Completed Multi-Disciplinary Progress Notes: Multi-Disciplinary Progress Notes 05/24/20 11:08 Case Management Note by Winifred Sewell PATIENT STILL ACUTELY ILL, WILL CONTINUE TO MONITOR PROGRESS AND ARRANGE FOR ANY EQUIPMENT/SERVICES AT TIME OF DC Initialized on 05/24/20 11:08 - END OF NOTE Assessment/Plan (1) Diabetes Current Visit: Yes Status: Acute Code(s): E11.9 - TYPE 2 DIABETES MELLITUS WITHOUT COMPLICATIONS (2) Essential hypertension Current Visit: Yes Status: Acute Code(s): I10 - ESSENTIAL (PRIMARY) HYPERTENSION
[2020-05-25] MEDS: Sodium Chloride 0.9% 1000 ML 1,000 ML IV SCH ×2 (01:05→01:57)
[2020-05-25] MEDS: Sodium Chloride 0.9% W/ 20 mEq KCl/LITER 1,000 ML IV SCH (01:06)
[2020-05-25] MEDS: Zofran 4 MG/2 ML VIAL IV PRN (01:53)
[2020-05-25] MEDS: TRANDATE 100 MG/20 ML MDV FOR DRIP IV PRN (05:11)
[2020-05-25 05:25] LABS: Absolute Neutrophil Ct (ANC) 5.95 (1.4-6.9); BASOPHIL % 0.2 % (0.0-0.4); Basophil (Absolute #) 0.02 (0-0.4); Eosinophil % 0.7 % (0.00-5.0); Eosinophil (Absolute #) 0.06 (0-0.5); Hematocrit 34.8 % (42-50); Hemoglobin 11.2 gm/dl (12.5-18.0); Lymphocyte (Absolute #) 1.42 (1.0-4.6); Lymphocytes % 16.6 % (24.0-44.0); Mean Cell Volume 90.6 fl (78-100); Mean Corpuscular Hemoglobin 29.2 pg (26-32); Mean Corpuscular Hgb Concent. 32.2 g/dl (32-36); Mean Platelet Volume 10.1 fl (7.5-11.0); Monocyte (Absolute #) 1.09 (0.0-1.3); Monocytes % 12.8 % (0.0-12.0); Neutrophil % 69.7 % (36.0-66.0); Platelet Count 224 K/mm3 (150-450); Red Blood Count 3.84 M/mm3 (4.1-5.6); Red Cell Distribution Width 12.4 % (11.5-14.0); White Blood Count 8.5 K/mm3 (4.0-10.5)
[2020-05-25 05:38] LABS: ALKALINE PHOSPHATASE 55 U/L (38-126); ANION GAP 8.9 MEQ/L (5-15); BLOOD UREA NITROGEN 17 mg/dL (9-20); CHLORIDE 107 mmol/L (98-107); Calcium 7.5 mg/dL (8.4-10.2); Carbon Dioxide 24 mmol/L (22-30); Creatinine 1 0.77 mg/dL (0.66-1.25); Direct Bilirubin 0.2 mg/dL (0.0-0.4); Glucose 205 mg/dL (74-106); Potassium 3.6 mmol/L (3.5-5.1); SGOT/AST 26 U/L (17-59); SGPT/ALT 23 U/L (0-50); SODIUM 137 mmol/L (137-145); Total Protein 5.8 g/dL (6.3-8.2)
[2020-05-25] MEDS: HUMALOG SQ PRN (08:17)
--- NOTE | 2020-05-25 08:32 | PCM.NOTE ---
Date and Time: 05/25/2032 Subjective Assessment: 75 yr old male seen and examined this am. Patient reports that he is feeling much better this am. He has had multiple BMs. He is tolerating PO diet at this time without nausea. He denies abdominal pain. He is anxious to go home. - Review of Systems Constitutional: No Fever Eyes: No Symptoms Ears, Nose, & Throat: No Symptoms Respiratory: No Symptoms Cardiac: No Symptoms Abdominal/Gastrointestinal: No Abdominal Pain, No Nausea, No Vomiting, No Diarrhea, No Constipation Genitourinary Symptoms: No Symptoms Musculoskeletal: No Symptoms Skin: No Symptoms Neurological: No Symptoms Psychological: No Symptoms Objective Exam General Appearance: no apparent distress, other (Patient looks better today still mildly ill appearing) Neurologic Exam: alert, oriented x 3, cooperative, normal mood/affect Skin Exam: normal color, warm, dry, No rash Ears, Nose, Throat Exam: moist mucous membranes Neck Exam: full range of motion Respiratory Exam: normal breath sounds, lungs clear, No chest tenderness, No respiratory distress, No diminished breath sounds, No wheezing Cardiovascular Exam: regular rate/rhythm, normal heart sounds, No murmur, No friction rub, No gallop, No edema Gastrointestinal/Abdomen Exam: soft, normal bowel sounds, No tenderness, No distention, No guarding, No rebound Extremity Exam: normal inspection, No pedal edema, No swelling OBJECTIVE DATA Vital Signs: Vital Signs - 24 hr Temp Pulse Resp BP Pulse Ox 05/25/20 04:00 99.1 F 72 16 180/76 94 L 05/25/20 00:00 98.9 F 72 18 160/72 93 L 05/24/20 20:00 98.8 F 70 18 155/70 94 L 05/24/20 16:00 97.5 F 83 14 162/72 93 L 05/24/20 12:00 76 176/75 Pain Assessment - Last Documented Pain Intensity 0 Pain Scale Used 0-10 Pain Scale Intake and Output: Intake & Output 05/22/20 05/23/20 05/24/20 05/25/20 11:59 11:59 11:59 11:59 Intake Total 1250 2970 74150 3575 Output Total 1750 1850 200 300 Balance -500 1120 68327 3275 Weight 90.8 kg 91.1 kg 90.2 kg 88.6 kg Lab Results: Accuchecks Date 05/25/20 Date 05/24/20 Time 05:58 Time 21:30 Accucheck Value: 205 Accucheck Value: 284 Accucheck Value: 216 Lab Results-Last 24 Hours 05/25/20 05/25/20 Range/Units 04:33 04:33 WBC 8.5 (4.0-10.5) K/mm3 RBC 3.84 L (4.1-5.6) M/mm3 Hgb 11.2 L (12.5-18.0) gm/dl Hct 34.8 L (42-50) % MCV 90.6 (78-100) fl MCH 29.2 (26-32) pg MCHC 32.2 (32-36) g/dl RDW 12.4 (11.5-14.0) % Plt Count 224 (150-450) K/mm3 MPV 10.1 (7.5-11.0) fl Gran % 69.7 H (36.0-66.0) % Eos # (Auto) 0.06 (0-0.5) Absolute Lymphs (auto) 1.42 (1.0-4.6) Absolute Monos (auto) 1.09 (0.0-1.3) Lymphocytes % 16.6 L (24.0-44.0) % Monocytes % 12.8 H (0.0-12.0) % Eosinophils % 0.7 (0.00-5.0) % Basophils % 0.2 (0.0-0.4) % Absolute Granulocytes 5.95 (1.4-6.9) Basophils # 0.02 (0-0.4) Sodium 137 (137-145) mmol/L Potassium 3.6 (3.5-5.1) mmol/L Chloride 107 (98-107) mmol/L Carbon Dioxide 24 (22-30) mmol/L Anion Gap 8.9 (5-15) MEQ/L BUN 17 (9-20) mg/dL Creatinine 0.77 (0.66-1.25) mg/dL Estimated GFR > 60.0 ML/MIN Glucose 205 H (74-106) mg/dL Calcium 7.5 L (8.4-10.2) mg/dL Total Bilirubin 0.70 (0.2-1.3) mg/dL Direct Bilirubin 0.2 (0.0-0.4) mg/dL AST 26 (17-59) U/L ALT 23 (0-50) U/L Alkaline Phosphatase 55 (38-126) U/L Serum Total Protein 5.8 L (6.3-8.2) g/dL Albumin 3.0 L (3.5-5.0) g/dL Radiology Exams: Radiology Procedures Category Date Time Status SMALL BOWEL FOLLOWING UGI Routine Exams 05/24/20 09:00 Completed UGI w/o AIR Routine Exams 05/24/20 12:23 Completed Multi-Disciplinary Progress Notes: Multi-Disciplinary Progress Notes 05/24/20 11:08 Case Management Note by Winifred Sewell PATIENT STILL ACUTELY ILL, WILL CONTINUE TO MONITOR PROGRESS AND ARRANGE FOR ANY EQUIPMENT/SERVICES AT TIME OF DC Initialized on 05/24/20 11:08 - END OF NOTE Assessment/Plan (1) Ileus Current Visit: Yes Status: Acute Assessment & Plan: Appears to have resolved. Patient had upper gi with small bowel follow through which did not show obstruction. He had NG pulled last night. He was transitioned to regular PO diet. He has tolerated PO well without vomiting. Plan will be to DC to home today. He will go home on famotidine and zofran. Code(s): K56.7 - ILEUS, UNSPECIFIED (2) Diabetes Current Visit: Yes Status: Acute Code(s): E11.9 - TYPE 2 DIABETES MELLITUS WITHOUT COMPLICATIONS (3) Essential hypertension Current Visit: Yes Status: Acute Code(s): I10 - ESSENTIAL (PRIMARY) HYPERTENSION (4) Hyperkalemia Current Visit: Yes Status: Acute Code(s): E87.5 - HYPERKALEMIA Discharge Summary Date of Admission: 05/22/20 18:41 Admitting Physician: LETY BROOKE MD Consults: Consults on Case 05/22/20 10:44 Consult Surgery ROUTINE Primary Care Provider: LETY BROOKE MD - Discharge Disposition: Home, Self-Care Condition: Stable Prescriptions: New Famotidine [Famotidine 10mg Tablet] 10 mg PO QAM #20 tablet Ondansetron HCl [Zofran] 4 mg PO Q4-6HPRN PRN #30 tablet PRN Reason: Nausea/Vomiting Continue Metformin HCl 1000 mg [Glucophage 1000 MG] 1,000 mg PO BID Lisinopril 40 mg PO DAILY Verapamil HCl 80 mg [Calan 80 mg] 180 mg PO DAILY Simvastatin 40 mg [Zocor 40 mg] 40 mg PO DAILY Acetaminophen 500 mg [Tylenol Extra Strength 500 mg] 1,000 mg PO HS [place]-3 Fatty Acids/Fish Oil [Fish Oil 1,000 mg Capsule] 2,000 mg PO DAILY Multivitamin [Multivitamins] 1 each PO DAILY Glipizide [Glipizide ER] 10 mg PO DAILY Insulin Detemir [Levemir] 38 units SQ DAILY Follow up with: LETY BROOKE MD [Primary Care Provider] - 1 Week
[2020-05-25 09:16] VITALS: BP 184/75; PULSE 71; O2SAT 95
== END 2020-05-25 11:33 | disposition home or self-care (01) | DRG 390 ==
LOC: ED 14:28 → MED SURG 18:28 → OBSVTOIN 05-22 18:41
PROVIDERS: ADMIT Family Medicine; ATTEND Family Medicine
DX: K56.7 Ileus, unspecified (principal); I10 Essential (primary) hypertension; E11.9 Type 2 diabetes mellitus without complications; E87.5 Hyperkalemia; E78.5 Hyperlipidemia, unspecified; Z79.899 Other long term (current) drug therapy
CPT/HCPCS: 36000; 36415; 74018; 74177; 74240; 74248; 80053; 81001; 82248; 82962; 83690; 85025; 85027; 86850; 86900; 86901; 93005; 93268; 96360; 96361; 96372; 96374; 96375; 96376; 99285; G0378; J1815; J1817; J2270; J2405

== ENCOUNTER 2025-07-25 08:51 | Day surgery (SDC) | payer MEDICARE ==
[2025-07-25] MEDS: TETRACAINE 0.5% STERI-UNIT SOL OP ONE ×2 (09:26→09:43)
[2025-07-25] MEDS: Ak-Dilate OPHTHALMIC*** 0.71 ML, Cyclogyl 1% OPHTH SOL 0.71 ML, GATIFLOXACIN 0.5% OPHTH... OP SCH (09:28)
[2025-07-25 09:40] VITALS: O2SAT 99
[2025-07-25 09:58] LABS: Calcium 8.5 mg/dL (8.4-10.2); Carbon Dioxide 26.0 mmol/L (22-30); Creatinine 1 1.07 mg/dL (0.66-1.25); EST GLOMERULAR FILTRATION RATE 70.6 ML/MIN; Glucose 146.0 mg/dL (74-106); Potassium 4.5 mmol/L (3.5-5.1)
[2025-07-25] MEDS ORDERED: propofoL IV ONE ×2 (11:01→11:11)
[2025-07-25] MEDS ORDERED: Zofran 4 MG/2 ML VIAL IV PRN (11:30)
[2025-07-25] MEDS ORDERED: BETADINE 5% OPHTHALMIC 30 ML OP NR (11:30)
[2025-07-25] MEDS ORDERED: DEXTENZA OP NR (11:30)
[2025-07-25] MEDS ORDERED: DEXMEDETOMIDINE 80 MCG/20ML-NS IV NR (11:30)
[2025-07-25] MEDS ORDERED: VIGAMOX/BSS 0.15% SYR IO NR (11:30)
[2025-07-25] MEDS ORDERED: OMIDRIA 1-0.3% VIAL IO NR (11:30)
[2025-07-25] MEDS ORDERED: TRIAMCINOLONE 15 MG/ML INJ INTRAOP NR (11:30)
[2025-07-25] MEDS: ACETAZOLAMIDE 250 MG TABLET PO ONE (11:37)
[2025-07-25 11:40] VITALS: RESP 16
[2025-07-25 11:47] VITALS: BP 131/65; PULSE 71; TEMP 97
== END 2025-07-25 11:52 | disposition home or self-care (01) ==
LOC: SDC 08:51
PROVIDERS: ATTEND Ophthalmology
DX: H25.811 Combined forms of age-related cataract, right eye (principal); E11.9 Type 2 diabetes mellitus without complications

== ENCOUNTER 2025-08-22 08:46 | Day surgery (SDC) | payer MEDICARE ==
[~2025-08-22 08:46] MED LIST: BETADINE 5% OPHTHALMIC 30 ML OP NR; DEXMEDETOMIDINE 80 MCG/20ML-NS IV NR; Epinephrine Preservative Free 1 MG/ML INTRAOP NR; TETRACAINE 0.5% STERI-UNIT SOL OP ONE; TRIAMCINOLONE 15 MG/ML INJ INTRAOP NR; VIGAMOX/BSS 0.15% SYR IO NR; Zofran 4 MG/2 ML VIAL IV PRN
[2025-08-22 09:50] VITALS: RESP 16
[2025-08-22] MEDS: Ak-Dilate OPHTHALMIC*** 0.71 ML, Cyclogyl 1% OPHTH SOL 0.71 ML, GATIFLOXACIN 0.5% OPHTH... OP SCH (10:19)
[2025-08-22 10:30] LABS: Calcium 9.0 mg/dL (8.4-10.2); Carbon Dioxide 25.0 mmol/L (22-30); Creatinine 1 1.14 mg/dL (0.66-1.25); EST GLOMERULAR FILTRATION RATE 65.4 ML/MIN; Glucose 104.0 mg/dL (74-106); Potassium 4.3 mmol/L (3.5-5.1)
[2025-08-22] MEDS: TETRACAINE 0.5% STERI-UNIT SOL OP ONE (10:38)
[2025-08-22] MEDS ORDERED: propofoL IV ONE (12:12)
[2025-08-22] MEDS: ACETAZOLAMIDE 250 MG TABLET PO ONE (12:46)
[2025-08-22 12:53] VITALS: BP 136/70; PULSE 68; TEMP 97.2; O2SAT 100
== END 2025-08-22 13:03 | disposition home or self-care (01) ==
LOC: SDC 08:46
PROVIDERS: ATTEND Ophthalmology
DX: H25.811 Combined forms of age-related cataract, right eye (principal); I10 Essential (primary) hypertension